=== PATIENT | female | born 1980 | race African-American/Black ===

== ENCOUNTER 2021-04-07 00:05 | Emergency (ER) | payer SELFPAY ==
--- OUTSIDE RECORDS SUMMARY | 2021-04-07 00:12 | XMS REPORT | Clinical Summary ---
Author Author [facility] Organization [facility] Address Unknown Phone Unavailable Care Team Providers Care Eating Disorder Psychologist Name Role Phone Unassigned, None PCP Unavailable Allergies No known active allergies Medications End Date Status Medication Sig Dispensed Refills Start Date Active FLUoxetine (PROZAC) 20 MG Take 1 14 capsule 0 capsuleIndications: MDD capsule (20 0 (major depressive mg total) by disorder), recurrent mouth daily. severe, without psychosis (HCC), OLU (generalized anxiety disorder) Active QUEtiapine (SEROQUEL) 25 Take 1/2 7 tablet 0 0 MG tabletIndications: tablet (12.5 0 mood and sleep mg total) by mouth at bedtime. Active Problems Problem Noted Date MDD (major depressive disorder), recurrent severe, wi thout psychosis 09/02/2019 Relational problem 09/02/2019 Intellectual disability 09/02/2019 OLU (generalized anxiety disorder) 09/02/2019 Stimulant use disorder 09/02/2019 Suicidal ideation 09/02/2019 Nicotine use disorder 09/02/2019 Family History Medical History Relation Name Comments Arthritis Mother Relation Name Status Comments Mother Social History Date Tobacco Use Types Packs/Day Years Used Current Every Day Smoker Cigarettes 0.25 Smokeless Tobacco: Never Used Tobacco Cessation: Ready to Quit: No; Co unseling Given: No Comments Alcohol Use Standard Drinks/Week Not Currently 0 (1 standard drink = 0.6 o z pure alcohol) Control Partners Comments Sexually Active Tubal Ligation Male not currently Not Currently Sex Assigned at Date Recorded Female 08/31/2019 10:46 PM CDT Last Filed Vital Signs Reading Time Taken Comments Vital Sign 117/86 09/05/2019 8:27 AM CDT Blood Pressure 89 09/05/2019 8:27 AM CDT Pulse 37.2 C (98.9 F) 09/05/2019 8:26 AM CDT Temperature 16 09/05/2019 8:26 AM CDT Respiratory Rate 100% 09/05/2019 8:26 AM CDT Oxygen Saturation - - Inhaled Oxygen Concentration 62.6 kg (138 lb) 08/31/2019 10:19 PM CDT Weight 154.9 cm (5' 1") 08/31/2019 10:19 PM CDT Height 26.07 08/31/2019 10:19 PM CDT Body Mass Index Plan of Treatment Health Maintenance Due Date Last Done Comments Varicella Vaccines (1 of 12/07/1979 2 - 2-dose childhood series) COVID-19 Vaccine (1) 12/07/1983 Pneumo-Vaccine: 65+Yrs (1 1984 of 2 - PPSV23) Pneumo-Vaccine: Peds (0-5 1984 Yrs) & At-Risk Patients (6-64 Yrs) (1 of 2 - PPSV23) Hepatitis C Screening 1996 DTaP,Tdap,and Td Vaccines 1997 (1 - Tdap) MMR Vaccines-Adult 1997 Cervical Cancer Screening 12/07/1999 Influenza Vaccine (#1) 2020 05/20/2012, 02/21/2002 HIB Vaccines Aged Out No longer eligible based on patient's age to complete this topic IPV Vaccines Aged Out No longer eligible based on patient's age to complete this topic Meningococcal Vaccine Aged Out No longer eligib le based on patient's age to complete this topic Rotavirus Vaccines Aged Out No longer eligible based on patient's age to complete this topic Results Not on filefrom Last 3 Months Insurance Type Payer Benefit Subscriber ID Effective Phone Address Plan / Dates Group [employer] KANCARE 19 [id number] 2019-P [address] [place] [id number] [facility] [id number] Advance Directives For more information, please contact: [phone] Patient Operator Engineer Explanation Type Date Recorded Advance Directives and Living Will Dmitrykvng Pittman (Spouse) Power of Veterinarian Helper Date Inactivated Comments Code Status Date Activated Full Code 09/05/2019 11:20 AM 09/05/2019 11:20 AM Full Code 08/31/2019 11:41 PM Care Teams Start Date End Date Eating Disorder Psychologist Relationship Specialty 08/31/19 Unassigned, None PCP - General [place]
== END 2021-04-07 01:02 | disposition left against medical advice (07) ==
LOC: ER 00:08
DX: R50.9 Fever, unspecified (principal)